=== PATIENT | male | born 1950 | race Caucasian/White ===

== ENCOUNTER 2019-09-28 22:40 | Inpatient (IN) | payer MEDICAID ==
[~2019-09-28] VITALS: Ht 170.2 cm; Wt 74.8 kg
--- NOTE | 2019-09-28 22:45 | NUR ---
TO ER BED 4 C/O INTERMITTENT HEMATURIA X6 MONTHS. DIFFICULTY URINATING WITH PAIN X1 DAY, GENERALIZED WEAKNESS X1 DAY. PT AAOX4 NO ACUTE DISTRESS NOTED, RESP EVEN AND UNLABORED. PLACE PT ON CARDIAC MONITORING, CONTINUOUS POX. URINE SAMPLE COLLECTED AND SENT TO LAB.
--- NOTE | 2019-09-28 22:58 | NUR ---
BERNA VILLANUEVA AT BEDSIDE TO DORINA DAVIS
[2019-09-28] MEDS ORDERED: ONDANSETRON HCL/PF 4 MG/2 ML VIAL ONE (23:13)
[2019-09-28] MEDS ORDERED: MORPHINE SULFATE INJ 4 MG/ML DISP.SYRIN ONE (23:13)
[2019-09-28 23:29] LABS: BASOPHILS % (AUTO) 0.5 % (0.0-2.0); EOSINOPHILS % (AUTO) 2.4 % (0.0-6.0); HEMATOCRIT 43 % (39-51); HEMOGLOBIN 14.1 g/dL (13.5-17.5); LYMPHOCYTES # (AUTO) 2.5 /CMM (0.8-4.8); LYMPHOCYTES % (AUTO) 32.4 % (20.0-44.0); MEAN CORPUSCULAR HGB CONC 33 g/dl (31.0-36.0); MEAN CORPUSCULAR VOLUME 90 fL (80-96); MONOCYTES # (AUTO) 0.8 /CMM (0.1-1.30); NEUTROPHILS # (AUTO) 4.2 /CMM (1.8-8.9); NEUTROPHILS % (AUTO) 54.7 % (43.0-81.0); PLATELET COUNT (AUTO) 361 /CMM (150-450); RED BLOOD CELL COUNT(AUTO) 4.79 MIL/uL (4.5-6.0); WHITE BLOOD COUNT (AUTO) 7.7 K/uL (4.3-11.0)
[2019-09-28] MEDS ORDERED: MORPHINE SULFATE INJ 2 MG/ML DISP.SYRIN IV ONE (23:30)
[2019-09-28] MEDS ORDERED: ONDANSETRON HCL/PF 4 MG/2 ML VIAL IV ONE (23:30)
[2019-09-28 23:34] LABS: CALCIUM, SERUM 8.5 mg/dL (8.5-10.1); CREATININE 1.3 mg/dL (0.6-1.3); POTASSIUM 3.3 mmol/L (3.5-5.1)
[2019-09-28 23:40] LABS: ALBUMIN 3.7 g/dL (3.4-5.0); BILIRUBIN,DIRECT 0.2 mg/dL (0.0-0.2); BILIRUBIN,TOTAL 1.6 mg/dL (0.2-1.0); TOTAL PROTEIN, SERUM 7.5 g/dL (6.4-8.2)
[2019-09-28 23:44] LABS: APPEARANCE,URINE CLOUDY (CLEAR); BILIRUBIN,URINE SMALL (NEGATIVE); BLOOD, URINE LARGE Ery/uL (NEGATIVE); COLOR,URINE AMBER (YELLOW); KETONES,URINE 15 (NEGATIVE); LEUKOCYTE ESTERASE ,URINE TRACE (NEGATIVE); NITRITE, URINE POSITIVE (NEGATIVE); PROTEIN,URINE 100 mg/dl (NEGATIVE); UGLUCOSE NEGATIVE (NEGATIVE)
[2019-09-28 23:55] LABS: BACTERIA,URINE Many /HPF (None Seen); RBC,URINE TOO NUMEROUS TO COUN /HPF (0-2)
[2019-09-28 23:56] LABS: SQUAMOUS EPITHELIAL CELL,UR Moderate /HPF (None Seen)
[2019-09-28 23:57] LABS: URINE AMORPHOUS URATE Moderate /HPF (None Seen)
--- NOTE | 2019-09-29 00:50 | NUR ---
[facility] [phone]
--- NOTE | 2019-09-29 01:05 | NUR ---
BROUGHT BACK FROM CT
--- NOTE | 2019-09-29 02:31 | NUR ---
ER MD SPOKE TO DR. LUI REGARDING PT ADMISSION.
--- NOTE | 2019-09-29 02:42 | NUR ---
REPORT CALLED TO M/S LINNEA CARCAMO. WILL TRANSPORT PT TO ROOM 321-1
[2019-09-29] MEDS ORDERED: CIPROFLOXACIN IV RTU 200 ML IV ONE (02:44)
[2019-09-29] MEDS ORDERED: CIPROFLOXACIN IV RTU 400 MG in PREMIX 1 EA IV STA (02:45)
[2019-09-29] MEDS ORDERED: MAGNESIUM HYDROXIDE 30 ML UDC PO PRN (03:00)
[2019-09-29] MEDS ORDERED: ACETAMINOPHEN 325 MG TABLET PO PRN (03:00)
[2019-09-29] MEDS ORDERED: ZOLPIDEM TARTRATE 5 MG TABLET PO ONE (03:00)
[2019-09-29] MEDS ORDERED: MAG HYDROX/AL HYDROX/SIMETH 30 ML UDC PO PRN (03:00)
[2019-09-29] MEDS ORDERED: HYDROCODONE/APAP 5/325MG 1 EACH TABLET PO PRN (03:00)
[2019-09-29] MEDS ORDERED: CIPROFLOXACIN IV RTU 400 MG in PREMIX 1 EA IV SCH (03:00)
[2019-09-29] MEDS ORDERED: Z GUARD REMEDY 2 OZ OINT TP PRN (03:00)
[2019-09-29] MEDS ORDERED: ZOLPIDEM TARTRATE 5 MG TABLET PO PRN (03:00)
[2019-09-29] MEDS ORDERED: ONDANSETRON HCL/PF 4 MG/2 ML VIAL IVP PRN (03:00)
--- NOTE | 2019-09-29 03:15 | NUR ---
MS CARBON SETTER NOTES PATIENT ADMITTED FROM ER FOR HEMATURIA AND BLADDER STONES. A/OX3. STABLE ON RA, SPO2 97%; BREATHING IS EVEN AND UNLABORED. PATIENT SLIGHTLY SEDATED FROM MORPHINE GIVEN IN ER; ABLE TO AMBULATE HOWEVER NEEDS STANDBY ASSISTANCE; NEEDS REINFORCEMENT DUE TO SLIGHT CONFUSION FROM PAIN MEDS. PATIENT DENIES ANY PAIN AT THIS TIME. IV PRESENT ON LEFT FA, SIZE 18, INTACT & PATENT WITH IVPB ANTIBIOTIC CIPRO RUNNING AT 200ML/HR. SKIN IS DRY AND INTACT UPON ASSESSMENT. PATIENT STATES HE DOES NOT TAKE ANY HOME MEDS. BELONGINGS REVIEWED WITH PATIENT; BELONGINGS LIST PLACED IN CHART. RETAIL ANALYTICS MANAGER SANIA VILLANUEVA, AWARE OF ADMISSION; ORDERS IN PLACE. SAFETY MEASURES IN PLACE AND PATIENT'S NEEDS MET. BED LOCKED, ALARM ON, SIDE RAILS X2, CALL LIGHT WITHIN REACH. WILL CONTINUE TO MONITOR.
[2019-09-29 03:30] VITALS: BP 162/94
--- NOTE | 2019-09-29 03:37 | NUR ---
TRANSPORTED TO [facility]
[2019-09-29 04:00] VITALS: BP 153/90
[2019-09-29] MEDS ORDERED: hydrALAZINE HCL 25 MG TABLET PO PRN (07:00)
--- NOTE | 2019-09-29 07:15 | NUR ---
MS RN CLOSING NOTES PATIENT SLEEPING IN BED, EASY TO AWAKEN. A/OX3. STABLE ON RA. NO C/O PAIN. IV REMAINS PRESENT ON LEFT AC, SIZE 18, INTACT & PATENT, HEP LOCKED. SAFETY MEASURES IN PLACE AND PATIENT'S NEEDS MET. BED LOCKED, ALARM ON, SIDE RAILS X2, CALL LIGHT WITHIN REACH. WILL ENDORSE TO DAY SHIFT NURSE PLAN OF CARE.
--- NOTE | 2019-09-29 07:30 | NUR ---
MS/RN Opening note Patient received form weight shifter. A/O X4, vital signs recorded as per protocol. Heplock to left AC flushing well with normal saline. No questions or concerns at this time. Bed in low setting, side rails X2 in upright position. Call light within reach, will continue to monitor and ensure safety.
[2019-09-29 08:00] VITALS: BP 152/95
--- NOTE | 2019-09-29 09:23 | NUR ---
MS/RN Strain urine Patient educated as to the need to strain urine to evaluate for possible particles of bladder stones that may of been passed. Educated with RN translating into Salvadorean.
--- NOTE | 2019-09-29 12:38 | NUR ---
MS/RN Urine Continue to strain urine, no stone particals as of this time.
[2019-09-29 16:00] VITALS: BP 143/92
[2019-09-29 16:11] VITALS: BP 143/92
--- NOTE | 2019-09-29 16:32 | NUR ---
MS/RN S/B Dr Ga Seen by Dr Ga - patient to be discharged to home with instructions to follow up with primary care doctor and urologist.
[2019-09-29] MEDS ORDERED: CEPH-570 PO (16:56)
[2019-09-29] MEDS ORDERED: TERA5CAP4 PO (16:56)
[2019-09-29] MEDS ORDERED: HYDR-4384 PO (16:56)
[2019-09-29] MEDS ORDERED: TAMS-12 PO (16:56)
--- NOTE | 2019-09-29 18:24 | NUR ---
MS/paper roller Heplock and name bands removed, all personal belongings accounted for on belongings list which was then signed by patient. Educated patient as to the need to follow up with urologist to receive further treatment for six kidney stones which were visible on CT scan. Patient stating that he does not have either a urologist or a primary care doctor, information given to patient regarding follow up at [facility] to ensure further treatment can be provided. Per patient, he has been treated at [facility] before and knows where to go, stated that he would present to the emergency room tomorrow. Prescription sent electronically to preferred pharmacy for keflex, flomax, hytrin and norco, pharmacy location already verified with patient to be correct.
== END 2019-09-29 18:50 | disposition home or self-care (01) | DRG 465 ==
LOC: ER 22:48 → MED 09-29 03:07
PROVIDERS: ADMIT Nurse Practitioner Acute Care; ATTEND Nurse Practitioner Acute Care
DX: N21.0 Calculus in bladder (principal); N40.0 Benign prostatic hyperplasia without lower urinary tract symptoms; R31.9 Hematuria, unspecified
CPT/HCPCS: 36415; 76870-TC; 80048-TC; 80076-TC; 81000-TC; 83690-TC; 85025-TC; 87081-TC; 87086-TC; A4216; G0378; J0744; J2270; J2405; J7030

== ENCOUNTER 2020-02-24 13:50 | Emergency (ER) | payer MEDICAID ==
[~2020-02-24] VITALS: Ht 175.3 cm; Wt 90.7 kg
[~2020-02-24 13:50] MED LIST: CEPH-570 PO; HYDR-4384 PO; TAMS-12 PO; TERA5CAP4 PO
[2020-02-24] MEDS ORDERED: LIDOCAINE 2% JEL UROJET 10 ML MM ONE (14:06)
--- NOTE | 2020-02-24 14:38 | NUR ---
GORGE FROM HOME TO ER BED 7. AAOX4. NOT IN RESP DIDSTRESS. AMBULATORY. CAME IN FOR PAIN AND URINARY RETENTION SINCE YESTERDAY. PAIN IS 10/. WAS AT THE BEDSIDE FOR EVAL. ORDERS RECEIVED NOTED AND CARRIED OUT. MULLEN CATH INSERTED ASPER ORDERED, 18FR COUDE. URINE NOTED BROWN WITH SEDIMENTS.
[2020-02-24 15:42] LABS: APPEARANCE,URINE CLEAR (CLEAR); BILIRUBIN,URINE SMALL (NEGATIVE); BLOOD, URINE LARGE Ery/uL (NEGATIVE); COLOR,URINE YELLOW (YELLOW); KETONES,URINE TRACE (NEGATIVE); LEUKOCYTE ESTERASE ,URINE TRACE (NEGATIVE); NITRITE, URINE NEGATIVE (NEGATIVE); PROTEIN,URINE 100 mg/dl (NEGATIVE); UGLUCOSE NEGATIVE (NEGATIVE); UROBILINOGEN,URINE 0.2 EU/dL (0.2)
[2020-02-24] MEDS ORDERED: MORPHINE SULFATE INJ 4 MG/ML DISP.SYRIN ONE (15:44)
[2020-02-24] MEDS ORDERED: ONDANSETRON HCL/PF 4 MG/2 ML VIAL ONE (15:45)
[2020-02-24] MEDS ORDERED: ONDANSETRON 4 MG TAB.RAPDIS SL ONE (16:00)
[2020-02-24] MEDS ORDERED: MORPHINE SULFATE INJ 4 MG/ML DISP.SYRIN IM ONE (16:00)
[2020-02-24 16:09] LABS: RBC,URINE TOO NUMEROUS TO COUN /HPF (0-2)
[2020-02-24 16:10] LABS: BACTERIA,URINE 2+ /HPF (None Seen); SQUAMOUS EPITHELIAL CELL,UR 0-2 /HPF (None Seen)
--- NOTE | 2020-02-24 16:32 | NUR ---
Patient discharged to home in stable condition. Written and verbal after care instructions given. Patient verbalizes understanding of instruction. Pt ambulatory with a steady gait
[2020-02-24 16:33] VITALS: BP 152/92
== END 2020-02-24 16:33 | disposition home or self-care (01) ==
LOC: ER 13:53
DX: R33.9 Retention of urine, unspecified (principal); I10 Essential (primary) hypertension; Z79.899 Other long term (current) drug therapy
CPT/HCPCS: 51702; 81001; 87086; 96372 ×2; 99284; J2270; J2405; J3490; 81000-TC